=== PATIENT | female | born 1985 | race Hispanic/Latino ===

== ENCOUNTER 2024-04-26 04:08 | Emergency (ER) | payer SELFPAY | END 2024-04-26 04:59 | disposition home or self-care (01) | LOC: CSHERS 04:08 | DX: S93.491A Sprain of other ligament of right ankle, initial encounter (principal); X50.1XXA Overexertion from prolonged static or awkward postures, initial encounter; Y93.89 Activity, other specified | CPT/HCPCS: 99283 ==